=== PATIENT | female | born 1950 | race Caucasian/White ===

== ENCOUNTER 2016-03-08 10:45 | Emergency (ER) | payer OTHER, MEDICARE ==
[~2016-03-08] VITALS: Ht 162.6 cm; Wt 63.5 kg
[~2016-03-08 10:45] MED LIST: BUPROPION HYDR150 MG PO; CARBIDOPA AND L1 TA1 PO; CLONAZEPAM1 MG PO; ESTRADIOL2 MG PO; LITHIUM CARBON450 MG PO; MELOXICAM7.5 MG PO; QUETIAPINE FUMA25 MG PO; RISPERIDONE1 MG PO; ROZEREM8 MG PO; SINEMET 10-1001 TAB PO; SYNTHROID0.05 MG PO; TOLTERODINE TART4 MG
[2016-03-08 10:52] VITALS: BP 128/75
== END 2016-03-08 11:47 | disposition admitted as inpatient to this hospital (09) ==
LOC: ERH 10:45
DX: R39.89 Other symptoms and signs involving the genitourinary system (principal)